=== PATIENT | female | born 2000 | race Caucasian/White ===

== ENCOUNTER 2023-08-07 10:12 | Outpatient (CLI) | payer BC, SELFPAY ==
--- NOTE | 2023-08-07 10:30 | US_ITS ---
Patient: NOEMI OVALLE Facility:?[facility] Patient ID:?[id number] Site Patient ID:?[id number]. Site :?[id number] Study:?US-OB Pelvis TA/TV Pelvic US with Duplex-08/07/2023 11:59:18 AM Ordering Physician:Luiza Martínez Final Report: CLINICAL HISTORY: Pain TECHNIQUE: 2D morse scale ultrasound. In addition color Doppler and spectral Doppler analysis was performed of the pelvis using a transabdominal and transvaginal approach. FINDINGS: The uterus measures 7.4 x 4.0 x 4.2 cm. The endometrium measures 7 millimeters. A small amount of fluid is present within the endometrial canal. The right ovary measures 10.6 x 12.7 x 11.2 cm in size and the right ovary measures 10.5 x 6.9 x 5.8 cm. The ovaries demonstrate normal arterial and venous blood flow on color Doppler and spectral Doppler analysis. A mild amount of pelvic free fluid is present. Hypoechoic left ovarian/left adnexal cyst is present measuring 5.2 x 2.9 x 3.3 cm. A 2nd hypoechoic left ovarian cyst is present measuring 8.8 x 6.1 x 5.7 cm. This cyst may contain an area of anechoic fluid. Complex right ovarian cyst is present with low-level internal echoes. A lobular solid component is present with positive color Doppler flow. The solid like area measures approximately 4.5 cm. The cystic area measures approximately 10.7 x 7.8 x 9.7 cm. A smaller right ovarian cyst is present with internal echoes measuring 5.4 x 3.0 x 5.7 cm. IMPRESSION: Complex right ovarian cyst containing diffuse low-level internal echoes measuring approximally 10.7 cm. There is a lobular 4.5 cm soft tissue component within this cyst containing moderate internal blood flow. If this is not removed surgically then follow-up with MRI would be recommended. Diffuse low-level internal echoes cysts are present elsewhere within the left ovary measuring 8.8 cm and 5.2 cm and within the right ovary measuring 5.7 cm. These likely represent endometriomas. No uterine fibroid. A small amount of endometrial fluid is present. The endometrial thickness is 7 millimeters. Dictated by Carlos Christianson MD @ 08/07/2023 12:14:39 PM Signed by:?Carlos Christianson MD @08/07/2023 12:14:39 PM (Electronic Signature)
== END 2023-08-07 10:13 | disposition home or self-care (01) ==
LOC: US 10:13
PROVIDERS: PCP Physician Assistant; Visit Provider Obstetrics & Gynecology
DX: R10.9 Unspecified abdominal pain (principal); N83.201 Unspecified ovarian cyst, right side; N83.202 Unspecified ovarian cyst, left side
CPT/HCPCS: 76830; 76856; 93976